=== PATIENT | male | born 1980 | race Caucasian/White ===

== ENCOUNTER 2016-09-08 07:41 | Outpatient (CLI) | payer OTHER | END 2016-09-08 07:42 | disposition home or self-care (01) | DX: M47.812 Spondylosis without myelopathy or radiculopathy, cervical region (principal); R20.2 Paresthesia of skin; M62.81 Muscle weakness (generalized) ==

== ENCOUNTER 2016-10-14 22:02 | Emergency (ER) | payer OTHER ==
[2016-10-14 22:16] VITALS: BP 134/88
--- NOTE | 2016-10-14 23:12 | ED Physician Documentation ---
PD HPI UPPER EXT INJURY - Stated complaint Stated Complaint: R ARM PAIN - Chief complaint Chief Complaint: Ext Problem - History obtained from History obtained from: Patient - History of Present Illness Location: Right, Forearm, Wrist Type of injury: Other (no apparent injury - has had pain in forearm and wrist, feeling that it radiates down from shoulder. No neck pain. Seen by PMD couple of times. Considering neck or arm nerve process. Had MRI neck outpatient showing mild C5 process. ALso had EMG of arms showing nerve conductive problem through forearm. Is supposed to get referral to Neurologist, but he is deploying in a week, so does not think he will see specialist before going. Has been taking Ibuprofen PRN. He has some pain in shoulder at times, and notes fingers numb and hand hurts when he holds right arm up, such as on steering wheel. Also feels pain when lifting things with forearms/hands repetitively.). No: Fall, Twist Timing - duration: Weeks Timing - details: Gradual onset, Waxing and waning Improved by: Rest Worsened by: Moving, Other (gripping and lifting) Associated symptoms: Numbness (intermittently), Other (pain in forearm/wrist up to shoulder). No: Swelling Similar symptoms before: No diagnosis, Work up / diagnostics (neck MRI, arm EMG) Recently seen: Clinic Review of Systems Constitutional: denies: Fever, Chills Skin: denies: Rash, Lesions Endocrine: denies: Weight loss, Weight gain, Easy bruising / bleeding Immunocompromised: denies: Immunocompromised PD PAST MEDICAL HISTORY - Past Medical History Past Medical History: No - Past Surgical History Past Surgical History: Yes - Present Medications Home Medications: Ambulatory Orders Medication Instructions Recorded Confirmed Dexamethasone [Decadron] 4 mg PO DAILY #5 tablet 10/14/16 Gabapentin 100 mg PO BID #30 capsule 10/14/16 Naproxen [Naprosyn] 500 mg PO BID #30 tablet 10/14/16 Oxycodone HCl/Acetaminophen 1 each PO Q6H PRN #15 tablet 10/14/16 [Percocet 5-325 mg Tablet] - Allergies Allergies/Adverse Reactions: Allergies Allergy/AdvReac Type Severity Reaction Status Date / Time acetaminophen [From [place]] Allergy Itching Verified 10/14/16 23:48 hydrocodone bitartrate * Allergy Itching Verified 10/14/16 23:48 [From [place]] - Social History Does the pt smoke?: Yes Smoking Status: Current every day smoker Does the pt drink ETOH?: Yes Does the pt have substance abuse?: No - Immunizations Immunizations are current?: Yes - POLST Patient has POLST: No PD ED PE NORMAL - Vitals Vital signs reviewed: Yes - General General: Alert and oriented X 3, Well developed/nourished - Neck Neck: Supple, no meningeal sign, No bony TTP, No adenopathy - Derm Derm: Normal color, Warm and dry, No rash - Extremities Extremities: Other (mild tenderness anterior shoulder. Lifting right arm to shoulder level does start to give him tingling in fingers. Not tender in carpal wrist area per se, but flexion at wrist gives some tingling in fingers as well. ) - Neuro Neuro: Alert and oriented X 3, No motor deficit, No sensory deficit Results - Vitals Vitals: Vital Signs - 24 hr 10/14/16 22:12 Temperature 36.1 C L Heart Rate 60 Respiratory 16 Rate Blood Pressure 134/88 H O2 Saturation 99 Oxygen O2 Source Room air PD MEDICAL DECISION MAKING - ED course Complexity details: reviewed results (MRI done recently outpatient showing C5 mild/mod disc narrowing.), considered differential (seems like a nerve pain distribution. Had MRI neck with mild/mod disc narrowing C5, but his symptoms are more with forearm use or holding arm/shoulder up (has not used right arm driving due to symptoms). Consider more shoulder impingement or wrist/forearm process. He does feel it with lifting and use of arm and EMG reportedly showing process in forearm. Consider forearm compartment syndrom as he is muscular there. ), d/w patient Departure - Departure Disposition: 01 Home, Self Care Clinical Impression: Neuritis of upper extremity Arm pain Qualifiers: Laterality: right Qualified Code(s): M79.601 - Pain in right arm Condition: Stable Record reviewed to determine appropriate education?: Yes Follow-Up: ZION THOMPSON DO [Primary Care Provider] - Prescriptions: Dexamethasone [Decadron] 4 mg PO DAILY #5 tablet Gabapentin 100 mg PO BID #30 capsule Naproxen [Naprosyn] 500 mg PO BID #30 tablet Oxycodone HCl/Acetaminophen [Percocet 5-325 mg Tablet] 1 each PO Q6H PRN #15 tablet PRN Reason: Pain Comments: This sounds like nerve irritation, though not clear to me if it is impinging at the shoulder or somewhere in the forearm/wrist. This can happen at the wrist level (carpal tunnel) or through the forearm muscles (compartment syndrome), or even at the shoulder (impingement). It does not sound as much like neck nerve impingement, even though the MRI was slightly abnormal. Try wrist splint at night during sleep and during day when using hands/wrists a lot. Naproxen twice daily for pain and add Percocet as needed. Also Decadron steroid for 5 days to see if helps with presumed nerve inflammation. Gabapentin twice daily to try to help with nerve irritation. Follow up PMD and also Neurology as planned (if you get to do that before deploying). Forms: Activity restrictions Discharge Date/Time: 10/15/16 00:05
[2016-10-14] MEDS ORDERED: DEXAMETHASONE 10 MG/ML VIAL PO STA (23:40)
[2016-10-14] MEDS ORDERED: oxyCODONE/ACET 5/325 Prepack 4 PO STA (23:40)
[2016-10-14] MEDS ORDERED: IBUPROFEN 600 MG TABLET PO STA (23:41)
[2016-10-14] MEDS ORDERED: IBUPROFEN 600 MG TABLET PO ONE (23:50)
[2016-10-14] MEDS ORDERED: DEXAMETHASONE 10 MG/ML VIAL ONE (23:50)
[2016-10-14] MEDS ORDERED: oxyCODONE/ACET 5/325 Prepack 4 PO ONE (23:50)
== END 2016-10-15 00:05 | disposition home or self-care (01) ==
LOC: ED 22:02
DX: M79.2 Neuralgia and neuritis, unspecified (principal); M79.631 Pain in right forearm; M25.531 Pain in right wrist; F17.200 Nicotine dependence, unspecified, uncomplicated
CPT/HCPCS: 99283; A9270

== ENCOUNTER 2018-06-29 09:47 | Emergency (ER) | payer OTHER ==
[2018-06-29] MEDS ORDERED: BENZONATATE 100 MG CAPSULE PO STA (12:35)
[2018-06-29] MEDS ORDERED: ONDANSETRON ODT 4 MG TABLET TL STA (12:36)
[2018-06-29] MEDS ORDERED: ALBUTEROL NEB 2.5 MG/3 ML INH STA (12:45)
--- NOTE | 2018-06-29 12:45 | ED Physician Documentation ---
History of Present Illness - Stated complaint Stated Complaint: FEVER/OTOOLE/COUGHING - Chief complaint Chief Complaint: Heent - History obtained from History obtained from: Patient - History of Present Illness Timing: How many days ago (10) Pain level max: 3 Pain level now: 2 - Additonal information Additional information: 37-year-old male presents to the emergency department with cough congestion and body aches for the past several weeks. Also has had intermittent nausea and vomiting. Taking cough and cold medicine without relief. Feels like he had a fever last night. Immunizations are up-to-date. He states that he is leaving for the appointment tomorrow. Review of Systems Ten Systems: 10 systems reviewed and negative Constitutional: reports: Fever (subjective), Chills Nose: reports: Rhinorrhea / runny nose, Congestion Respiratory: reports: Cough GI: reports: Nausea, Vomiting. denies: Abdominal Pain, Diarrhea : denies: Dysuria Skin: denies: Rash Musculoskeletal: denies: Neck pain, Back pain Neurologic: denies: Focal weakness, Numbness, Seizure, Confused, Headache PD PAST MEDICAL HISTORY - Past Medical History Past Medical History: No - Past Surgical History Past Surgical History: Yes - Present Medications Home Medications: Ambulatory Orders Medication Instructions Recorded Confirmed Dexamethasone [Decadron] 4 mg PO DAILY #5 tablet 10/14/16 Gabapentin 100 mg PO BID #30 capsule 10/14/16 Naproxen [Naprosyn] 500 mg PO BID #30 tablet 10/14/16 Oxycodone HCl/Acetaminophen 1 each PO Q6H PRN #15 tablet 10/14/16 [Percocet 5-325 mg Tablet] Albuterol Sulf [Ventolin Hfa 1 - 2 puffs INH Q4HR PRN #1 inhaler 06/29/18 Inhaler] Benzonatate [Tessalon Perle] 100 - 200 mg PO TID PRN #30 capsule 06/29/18 Ondansetron Odt [Zofran] 4 mg TL Q6H PRN #10 tablet 06/29/18 - Allergies Allergies/Adverse Reactions: Allergies Allergy/AdvReac Type Severity Reaction Status Date / Time hydrocodone bitartrate * AdvReac Itching Verified 06/29/18 09:54 [From [place]] - Living Situation Living Situation: reports: With family Living Arrangement: reports: At home - Social History Does the pt smoke?: Yes Smoking Status: Current every day smoker Does the pt drink ETOH?: Yes Does the pt have substance abuse?: No - Family History Family history: reports: Non contributory - Immunizations Immunizations are current?: Yes - POLST Patient has POLST: No PD ED PE NORMAL - Vitals Vital signs reviewed: Yes - General General: Alert and oriented X 3, No acute distress, Well developed/nourished - HEENT HEENT: PERRL, Ears normal, Moist mucous membranes, Pharynx benign - Neck Neck: Supple, no meningeal sign, No adenopathy - Cardiac Cardiac: RRR, Strong equal pulses - Respiratory Respiratory: Other (Mild wheezing bilaterally) - Abdomen Abdomen: Soft, Non tender, Non distended - Back Back: No CVA TTP, No spinal TTP - Derm Derm: Warm and dry, No rash - Extremities Extremities: No deformity, No edema - Neuro Neuro: Alert and oriented X 3 - Psych Psych: Normal mood, Normal affect Results - Vitals Vitals: Vital Signs - 24 hr 06/29/18 06/29/18 06/29/18 09:51 11:49 12:59 Temperature 36.7 C 36.7 C 37.3 C Heart Rate 72 69 87 Respiratory 16 20 18 Rate Blood Pressure 135/85 H 135/77 H 123/74 O2 Saturation 99 100 98 06/29/18 13:10 Temperature Heart Rate 88 Respiratory 18 Rate Blood Pressure O2 Saturation Oxygen O2 Source Room air - Labs Labs: Laboratory Tests 06/29/18 13:06 Influenza A (Rapid) POSITIVE H Influenza B (Rapid) Negative - Rads (name of study) cxr Radiology: Prelim report reviewed, EMP read contemporaneously, See rad report (no acute disease) PD MEDICAL DECISION MAKING - ED course Complexity details: reviewed results, re-evaluated patient, considered differential, d/w patient ED course: 37-year-old male with influenza A. He feels better after receiving a nebulizer treatment. Will prescribe an inhaler for home. No pneumonia on chest x-ray. Will continue supportive care and follow-up with his doctor. Patient is well- appearing, nontoxic. No hypoxia or respiratory distress. Patient counseled regarding signs and symptoms for which I believe and urgent re-evaluation would be necessary. Patient with good understanding of and agreement to plan and is comfortable going home at this time This document was made in part using voice recognition software. While efforts are made to proofread this document, sound alike and grammatical errors may occur. Departure - Departure Disposition: 01 Home, Self Care Clinical Impression: Influenza A Condition: Good Instructions: ED Flu Prescriptions: Albuterol Sulf [Ventolin Hfa Inhaler] 1 - 2 puffs INH Q4HR PRN #1 inhaler PRN Reason: Shortness Of Air/Wheezing Benzonatate [Tessalon Perle] 100 - 200 mg PO TID PRN #30 capsule PRN Reason: Cough Ondansetron Odt [Zofran] 4 mg TL Q6H PRN #10 tablet PRN Reason: Nausea / Vomiting Comments: You have tested positive for Influenza A. Tell your command this before you leave tomorrow. Use the medications as prescribed. Return if you worsen. Follow-up with your doctor for further care Discharge Date/Time: 06/29/18 13:47
[2018-06-29 13:01] VITALS: BP 123/74
--- NOTE | 2018-06-29 13:01 | XRAY Report ---
Reason: cough Procedure Date: 06/29/2018 Accession Number: [id number] / [id number] Procedure: XR - Chest 2 View X-Ray CPT Code: 98241 FULL RESULT: EXAM: CHEST RADIOGRAPHY EXAM DATE: 06/29/2018 12:53 PM HISTORY: COMMENTS: vomiting, cough, body aches PRIORS: none. COMPARISON: None. TECHNIQUE: Two Views FINDINGS: Lungs/Pleura: The lungs are clear. No consolidation, edema or pleural effusion. Cardiomediastinal silhouette: Unremarkable accounting for technique. Other: Surgical tack noted at the right scapula. IMPRESSION: No acute disease. [facility]
== END 2018-06-29 13:47 | disposition home or self-care (01) ==
LOC: ED 09:47
DX: J10.1 Influenza due to other identified influenza virus with other respiratory manifestations (principal); F17.200 Nicotine dependence, unspecified, uncomplicated
CPT/HCPCS: 71046; 87275; 87276; 94640; 99283; A9270; Q0162